=== PATIENT | female | born 2000 | race Two or more races ===

== ENCOUNTER 2024-07-06 16:06 | Emergency (ER) | payer OTHER ==
[~2024-07-06] VITALS: Ht 167.6 cm; Wt 89.8 kg
[2024-07-06] MEDS ORDERED: ZOLOFT100 MG (16:15)
[2024-07-06] MEDS ORDERED: SYNTHROID50 MCG (16:16)
[2024-07-06] MEDS ORDERED: ACETAMINOPHEN 500 MG GEL..CAP PO ONE (16:30)
[2024-07-06 16:52] LABS: HEMATOCRIT 40.1 % (36.0-45.00); HEMOGLOBIN 13.4 g/dL (12.0-15.00); MEAN CELL VOLUME 79.4 fL (80.00-100.00); MEAN CORPUSCULAR HEMOGLOBIN 26.6 pg (27.00-32.0); MEAN CORPUSCULAR HGB CONC 33.5 g/dl (32.0-36.0); PLATELET COUNT 179 K/uL (150-450); RED BLOOD COUNT 5.05 M/uL (4.00-6.00); RED CELL DISTRIBUTION WIDTH 13.7 % (11.5-14.5)
[2024-07-06 17:21] LABS: ALBUMIN 3.8 gm/dL (3.4-5.0); BILIRUBIN TOTAL 0.27 mg/dL (0.3-1.2); CALCIUM 8.9 mg/dL (8.5-10.1); CREATININE SERUM 1.08 mg/dL (0.55-1.02); GFR 62.87; GLOBULINA 4.3 G/DL (2.4-3.5); POTASSIUM 3.3 mEq/L (3.5-5.1); TOTAL PROTEIN 8.1 gm/dL (6.4-8.2); TSH 1.04 uIU/mL (0.358-3.74)
[2024-07-06 17:43] LABS: PH,URINE 5.5 (5.0-8.0); URINE APPEARANCE Clear; URINE BILIRRUBIN Negative (NEGATIVE); URINE COLOR Yellow; URINE GLUCOSE Negative (NEGATIVE); URINE KETONE Trace (NEGATIVE); URINE LEUKOCYTE Negative; URINE NITRATE Negative; URINE PROTEIN 30 (NEGATIVE)
[2024-07-06 17:46] LABS: URINE EPITHELIAL CELLS 29.9 uL (0.0-38.8); URINE RBC 45.5 uL (0.0-20.8)
[2024-07-06 17:49] LABS: URINE BLOOD TRACES
[2024-07-06] MEDS ORDERED: 0.9 % SODIUM CHLORIDE 1,000 ML IV ONE (18:45)
== END 2024-07-06 20:32 | disposition home or self-care (01) ==
LOC: ER 16:08
PROVIDERS: General Practice
DX: B34.9 Viral infection, unspecified (principal); R53.81 Other malaise; Z20.822 Contact with and (suspected) exposure to COVID-19

== ENCOUNTER 2024-07-08 18:34 | Emergency (ER) | payer OTHER ==
[~2024-07-08] VITALS: Ht 167.6 cm; Wt 89.8 kg
[~2024-07-08 18:34] MED LIST: SYNTHROID50 MCG; ZOLOFT100 MG
[2024-07-08 19:19] VITALS: BP 110/74; O2SAT 99
[2024-07-08] MEDS ORDERED: FAMOtidine 10 MG/ML (4ML VIAL) IV ONE (19:45)
[2024-07-08] MEDS ORDERED: 0.9 % SODIUM CHLORIDE 1,000 ML IV ONE (19:45)
[2024-07-08] MEDS ORDERED: ONDANSETRON HCL 2 MG/ML VIAL IV ONE (19:45)
[2024-07-08 21:22] LABS: HEMATOCRIT 43.3 % (36.0-45.00); HEMOGLOBIN 14.3 g/dL (12.0-15.00); MEAN CELL VOLUME 79.8 fL (80.00-100.00); MEAN CORPUSCULAR HEMOGLOBIN 26.4 pg (27.00-32.0); MEAN CORPUSCULAR HGB CONC 33.1 g/dl (32.0-36.0); PLATELET COUNT 135 K/uL (150-450); RED BLOOD COUNT 5.42 M/uL (4.00-6.00); RED CELL DISTRIBUTION WIDTH 13.9 % (11.5-14.5)
[2024-07-08 22:00] LABS: ALBUMIN 3.8 gm/dL (3.4-5.0); ALKALINE PHOSPHATASE 75 U/L (50-136); ALT/SGPT 73 U/L (12-78); AMYLASE 71 U/L (25-115); ANION GAP 11 (10.0-20.0); AST/SGOT 75 U/L (15-37); BILIRUBIN TOTAL 0.31 mg/dL (0.3-1.2); BLOOD UREA NITROGEN 9 mg/dL (7-18); BUN CREA RATIO 10 (7.0-25.0); CALCIUM 9.4 mg/dL (8.5-10.1); CARBON DIOXIDE 24 mEq/L (21-32); CHLORIDE 107 mmol/L (98-107); CREATININE SERUM 0.94 mg/dL (0.55-1.02); GFR 73.79; GLOBULINA 4.4 G/DL (2.4-3.5); GLUCOSE FASTING 98 mg/dL (65-100); LIPASE 78 U/L (13-75); OSMOLALITY SERUM 274 MOSM/KG (275-295); POTASSIUM 3.57 mEq/L (3.5-5.1); SODIUM 138 mmol/L (136-145); TOTAL PROTEIN 8.2 gm/dL (6.4-8.2)
[2024-07-08 22:22] LABS: HCG QUANTITATIVE < 1 mUI/mL (1-3)
[2024-07-08] MEDS ORDERED: PEPCID AC20 MG PO (22:49)
[2024-07-08] MEDS ORDERED: ZOFRAN8 MG PO (22:49)
== END 2024-07-08 23:02 | disposition home or self-care (01) ==
LOC: ER 18:36
PROVIDERS: General Practice
DX: A90 Dengue fever [classical dengue] (principal); E03.9 Hypothyroidism, unspecified; Z20.822 Contact with and (suspected) exposure to COVID-19